=== PATIENT | female | born 2000 | race Two or more races ===

== ENCOUNTER 2021-02-25 17:06 | Emergency (ER) | payer MEDICAID, OTHER ==
[~2021-02-25] VITALS: Ht 167.6 cm; Wt 68.2 kg
[2021-02-25] MEDS ORDERED: DESO1TAB PO (17:24)
[2021-02-25 18:19] LABS: APPEARANCE,URINE CLOUDY (CLEAR); GLUCOSE, URINE (UA) NEGATIVE (NEGATIVE); KETONES,URINE TRACE mg/dL (NEGATIVE); LEUKOCYTE ESTERASE ,URINE NEGATIVE (NEGATIVE); NITRATE,URINE NEGATIVE (NEGATIVE); OCCULT BLOOD,URINE NEGATIVE (NEGATIVE); PH,URINE 6.5 (5.0-8.0); PROTEIN,URINE NEGATIVE (NEGATIVE)
[2021-02-25 18:46] LABS: BILIRUBIN,URINE PRELIM. POSITIVE (NEGATIVE)
[2021-02-25 19:29] VITALS: BP 131/71
[2021-02-25 19:36] LABS: RBC,URINE 0-2 /HPF (0-2); SQUAMOUS EPITHELIAL CELL,UR Many /LPF (None Seen)
[2021-02-25 19:37] LABS: BACTERIA,URINE Few /HPF (None Seen); WBC,URINE 0-2 /HPF (0-5)
== END 2021-02-25 19:50 | disposition home or self-care (01) ==
LOC: EMS 17:06
DX: R30.0 Dysuria (principal); Z79.899 Other long term (current) drug therapy
CPT/HCPCS: 81001; 81002; 99283